=== PATIENT | male | born 1980 | race Caucasian/White ===

== ENCOUNTER 2024-11-20 14:50 | Outpatient (AMB) | payer OTHER, SELFPAY ==
--- NOTE | 2024-11-20 15:02 | A.OFFPC_ITS ---
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 Intake Note: New patient visit Road Equipment Operator Required: No Allergies No Known Allergies Allergy (Verified 11/20/24 15:19) Medication List - Last Reconciled 11/20/24 by Sarah Beth Nguyen PA-C No Known Home Meds Tobacco use date assessed: 11/20/24 Dental Screening Dental Screen Date: 11/20/24 Did you have a dental visit in the last 12 months?: No Did you have a dental problem in the last 6 months where you did not have access to dental care?: No Was dental information given to patient?: Patient has dentist HPI INDEPENDENT JEWELER // PE HPI Details Patient is a 44-year-old male who presents today to [facility] care. He is transferring from [facility]. He has a significant past medical history of seizures, fatty liver. He works in construction. CV: Blood pressure today in the office is 118/84. Neuro: Reports no seizures since 2016. He states there was no known cause. He has been off of medication in his last follow up was at that time. GI: His last appointment at [facility] he did have a liver ultrasound was consistent with fatty liver in 2019. Fam hx: father- has renal disease, dm, pacer; paternal grandfather- pacemaker, cad, cancer unknown etilogy; maternal grandfather- dementia and seizures PFSH Surgical History (Updated 11/20/24 @ 15:24 by Cici Don CMA) H/O vasectomy Family History (Updated 11/20/24 @ 15:08 by Cici Don CMA) Father Diabetes Family/Other Prostate cancer Other Seizure Social History Housing: House Alcohol intake: current Patient Tobacco Use Status: Former Tobacco user Cigarette Packs Per Day: 1 Years Smoked: 18 e-Cigarette/Vaping Use: Never Used Second Hand Smoke Exposure: No Substance Use Type: Former Substance User and Marijuana service: No Current occupational status: employed Current occupation: Construction Current occupational exposures/hazards: No Cognitive needs: No Hearing needs: No Vision needs: No Questionnaire PHQ-9 Over the last 2 weeks, how often have you been bothered by any of the following problems? 1. Little interest or pleasure in doing things: not at all 2. Feeling down, depressed, or hopeless: not at all 3. Trouble falling or staying asleep, or sleeping too much: not at all 4. Feeling tired or having little energy: not at all 5. Poor appetite or overeating: not at all 6. Feeling bad about yourself - or that you are a failure or have let yourself or your family down: several days 7. Trouble concentrating on things, such as reading the newspaper or watching television: not at all 8. Moving or speaking so slowly that other people could have noticed. Or the opposite - being so fidgety or restless that you have been moving around a lot more than usual: not at all 9. Thoughts that you would be better off or of hurting yourself in some way: not at all Total score: 1 Depression Screening Interpretation: Negative Depression Screening Done: Yes 69497 - PHQ-9 Billing: Yes Source: Developed by Drs. Kamari Koch, Emily Haq, Rhys Issa and colleagues, with an educational lane from [employer]. Thrive Questionnaire Date Thrive assessed: 11/20/24 I am a: Patient What is your living situation today?: I have a steady place to live Within the past 12 months, did the food you bought not last and you didn't have the money to get more?: Never true Within the past 12 months, did you worry whether your food would run out before you got money to buy more?: Never true Do you have trouble paying for medicines?: No Do you have trouble getting transportation to medical appointments?: No Do you have trouble paying your heating and electricity bill?: No Do you have trouble taking care of your child, family member or friend?: No Do you have trouble with day-to-day activities such as bathing, preparing meals, shopping, managing finances, etc.?: No Are you currently unemployed and looking for a job?: I choose not to answer this question Are you interested in more education?: No Please select the resources that you would like help with: None Currently or been in a relationship where the following occur: No concerns reported THRIVE Score: 0 Physical exam (Primary Care) Depression Screening Interpretation: Negative Thrive Assessment: Date of Thrive Assessment Date Thrive assessed 10/03/24 10/03/24 13:25 Currently or been in a relationship where the following occur: No concerns reported Const Orientation/consciousness: patient oriented x3 HENMT Ears: hearing grossly normal bilaterally and TM's normal bilaterally General nose exam: No nasal polyps present Face and sinus: Yes sinuses nontender Mouth: Normal oral and palatal mucosa present Eyes Pupils: Equal, round and reactive pupils present EOM: EOMs intact bilaterally Neck Neck: Yes full ROM and Yes no lymphadenopathy Thyroid: Thyroid normal Chest Chest palpation & inspection: normal inspection of the chest Resp Auscultation: clear to auscultation bilaterally Cardio Rate: regular rate Rhythm: regular rhythm Heart sounds: S1 normal heart sound present and S2 normal heart sound present Peripheral pulses: Peripheral pulses 2+ throughout GI Other: Soft, nontender Auscultation: normal bowel sounds Rectal Exam - Male: Yes deferred General: Yes no CVA tenderness Back/Spine/Pelvis Other: Nontender Back: no CVA tenderness Skin General skin exam: no rashes or lesions noted Neuro General: patient oriented x3, gait normal, CN's II-XI intact bilaterally and deep tendon reflexes 2+ bilaterally Cranial nerves: Yes Equal, round and reactive pupils present Motor exam (neuro): 5/5 motor strength present throughout Sensory Exam: double simultaneous stimulation for sensation normal Coordination: [id number] test normal and Romberg test negative Extrem General: Yes normal to inspection and Yes full ROM Psych Affect: normal affect Attitude: cooperative Thought process: Normal thought process present Thought content: Normal thought content present Insight: Good insight present (Psych) Judgement: Good judgement present (Psych) Coding Level of Care Code New Pt Prev Care 40-64y(86465) Diagnoses Routine general medical examination at a health care facility Z00.00 Fatty liver K76.0 History of seizures Z87.898 Additional Codes PHQ-9 - 67572 - PHQ-9 Billing: Yes ([id number]) Assessment & Plan Assessment & Plan (1) Routine general medical examination at a health care facility: Code(s): Z00.00 - Encounter for general adult medical examination without abnormal findings Plan: reviewed labs ordered referral to [facility] (2) Fatty liver: Code(s): K76.0 - Fatty (change of) liver, not elsewhere classified Category: Medical Plan: ultrasound ordered (3) History of seizures: Code(s): Z87.898 - Personal history of other specified conditions Category: Medical Plan: Has been seizure free for 9 years. Orders: Orders Complete Blood Count Auto Diff Today K76.0 - Fatty (change of) liver, not elsewhere classified, Z00.00 - Encounter for general adult medical examination without abnormal findings, Z87.898 - Personal history of other specified conditions Lipid Panel Today K76.0 - Fatty (change of) liver, not elsewhere classified, Z00.00 - Encounter for general adult medical examination without abnormal findings, Z87.898 - Personal history of other specified conditions UA CC w/rflx Micro + Cult Today K76.0 - Fatty (change of) liver, not elsewhere classified, Z00.00 - Encounter for general adult medical examination without abnormal findings, Z13.220 - Encounter for screening for lipoid disorders, Z87.898 - Personal history of other specified conditions TSH reflex Free T4 Today K76.0 - Fatty (change of) liver, not elsewhere classified, Z00.00 - Encounter for general adult medical examination without abnormal findings, Z87.898 - Personal history of other specified conditions Prostate Specific Antigen Scr Today Z01.89 - Encounter for other specified special examinations Comprehensive [place]. Panel Fast Today K76.0 - Fatty (change of) liver, not elsewhere classified, Z00.00 - Encounter for general adult medical examination without abnormal findings, Z87.898 - Personal history of other specified conditions US abdomen comp w elastography Today K76.0 - Fatty (change of) liver, not elsewhere classified Venous Lead Today Z77.011 - Contact with and (suspected) exposure to lead Referrals Dermatology Referral Z12.83 - Encounter for screening for malignant neoplasm of skin
[2024-11-20 15:09] VITALS: BP 118/74; PULSE 68; RESP 16; O2SAT 97; BMI 33.9
== END 2024-11-20 15:49 | disposition home or self-care (01) ==
PROVIDERS: PCP Physician Assistant; Visit Provider Physician Assistant
DX: Z00.00 Encounter for general adult medical examination without abnormal findings (principal); K76.0 Fatty (change of) liver, not elsewhere classified; Z87.898 Personal history of other specified conditions

== ENCOUNTER → 2024-11-20 14:50 | Outpatient (BNVA) | payer OTHER, SELFPAY | PROVIDERS: PCP Physician Assistant; Visit Provider Physician Assistant | DX: Z00.00 Encounter for general adult medical examination without abnormal findings (principal); K76.0 Fatty (change of) liver, not elsewhere classified; Z87.898 Personal history of other specified conditions | CPT/HCPCS: 96127; 99386 ==

== ENCOUNTER 2024-12-30 10:10 | Outpatient (REF) | payer OTHER, SELFPAY ==
--- NOTE | ~2024-12-30 | US_ITS ---
EXAMINATION: US ABDOMEN COMPLETE WITH LIVER ELASTOGRAPHY HISTORY: K76.0 - Fatty (change of) liver, not elsewhere classified TECHNIQUE: Real-time grayscale ultrasound imaging of the abdomen was performed and images were reviewed. COMPARISON: There are no prior studies for comparison. FINDINGS: Liver: The right lobe of the liver measures 13.0 cm in size. The left lobe of the liver measures 10.4 cm in size. The liver demonstrates increased echotexture, consistent with steatosis. There is focal fatty sparing adjacent to the gallbladder. No focal mass or intrahepatic biliary ductal dilatation is identified. There is normal hepatopedal flow in the portal vein. Ultrasound elastography of the liver was performed with 10 separate measurements of the liver parenchyma with the patient in the supine position. Measurements were obtained approximately 2 cm below Cammie's capsule and perpendicular to the capsule. Images are of satisfactory quality. The median shear wave velocity is 1.38 m/s. The interquartile range/median (IQR/median) is 0.07. Gallbladder and biliary tree: There are polyps in the gallbladder measuring up to 4 mm in size. The gallbladder is otherwise unremarkable, without evidence of calculi, wall thickening, or pericholecystic fluid. There is no sonographic Chacon sign. The common bile duct is normal in caliber measuring 2 mm. Kidneys: The right kidney measures 11.3 cm in length. The left kidney measures 11.0 cm in length. There is an 8 mm cyst at the lower pole of the right kidney. The kidneys are otherwise unremarkable, without evidence of solid masses, hydronephrosis, or calculi. Pancreas: The pancreatic head, neck, and body are unremarkable. The pancreatic tail is obscured by bowel gas. Spleen: The spleen is normal in size and contour, measuring 11.2 cm in length. Abdominal aorta and inferior vena cava: The visualized portions of the abdominal aorta and inferior vena cava are normal in caliber. There is no free fluid in the abdomen. US/US abdomen comp w elastography IMPRESSION: Hepatomegaly and hepatic steatosis. Gallbladder polyps. The median shear wave velocity in the liver is 1.38 m/s, corresponding to a median liver stiffness of 5.67 kPa. The IQR/median value is 0.07. This is indicative of a quality data set. Findings are indicative of a low elastography value which rules out advanced chronic liver disease in asymptomatic patients. REFERENCE: Society of Radiologists in Ultrasound Liver Stiffness Thresholds (2020): LIVER STIFFNESS THRESHOLDS: *Shear wave velocity less than 1.3 m/s (Liver Stiffness equal or less than 5 kPa): High probability of being normal. *Shear wave velocity less than 1.7 m/s (Liver Stiffness less than 9 kPa): In the absence of other known clinical signs, rules out compensated advanced chronic liver disease. *Shear wave velocity between 1.7-2.1 m/s (Liver Stiffness 9-13 kPa): Suggestive of compensated advanced chronic liver disease but need further test for confirmation. *Shear wave velocity between 2.1-2.4 m/s (Liver Stiffness 13-17 kPa): Rules in compensated advanced chronic liver disease. *Shear wave velocity greater than 2.4 m/s (Liver Stiffness over 17 kPa): Suggestive of clinically significant portal hypertension. QUALITY OF DATA SET: *IQR/Median value equal or less than 0.15 implies a quality data set. *IQR/Median value over 0.15 implies a poor quality data set. SIGNIFICANT CHANGE FROM PRIOR EXAM: Significant change if liver stiffness measurement is 10% or greater from prior exam. OTHER CONSIDERATIONS: The stage of liver fibrosis may be overestimated in the setting of acute hepatitis, liver inflammation, elevated liver function tests, hepatic vascular congestion, obstructive cholestasis, non-fasting state, and infiltrative diseases such as amyloidosis and lymphoma. In some patients with NAFLD, the liver stiffness thresholds for compensated advanced chronic liver disease may be lower. In causes other than viral hepatitis and NAFLD, liver stiffness thresholds are not well established. Electronically signed by: Kamari Jang MD 12/30/2024 11:25 AM EDT
== END 2024-12-30 10:11 | disposition home or self-care (01) ==
LOC: HO.US 10:10
PROVIDERS: PCP Physician Assistant; Visit Provider Physician Assistant
DX: K76.0 Fatty (change of) liver, not elsewhere classified (principal)
CPT/HCPCS: 76700; 76981

== ENCOUNTER → 2024-12-30 10:11 | Outpatient (BNV) | payer OTHER, SELFPAY | PROVIDERS: PCP Physician Assistant; Visit Provider Radiology Diagnostic Radiology | DX: K76.0 Fatty (change of) liver, not elsewhere classified (principal) | CPT/HCPCS: 76700; 76981 ==

== ENCOUNTER 2025-01-27 14:46 | Outpatient (AMB) | payer OTHER, SELFPAY ==
--- NOTE | 2025-01-27 14:48 | MHC.OFFVIS ---
Vital Signs 01/27/25 14:55 Height 6 ft Weight 239 lb BMI 32.4 BP 120/73 Blood Pressure Location Lt brachial Position Sitting Pulse 75 Intake Visit Reasons: Gallbladder problems Intake Note: Patient is seen in office for gallbladder problems. Pt c/o: incidental finding had imaging for fatty liver and was told about stones in the gallbladder, has no symptoms, denies n/v/d/c Imagin12/30/24 Quantitative Analyst Developer Required: No Accompanied by: se Allergies No Known Allergies Allergy (Verified 11/20/24 15:19) Medication List - Last Reconciled 01/27/25 by Bairon Vilchis MD atorvastatin 10 mg PO QPM HPI Comments Details: 44-year-old male patient presenting for evaluation of a recent gallbladder ultrasound. He has a history of fatty liver and underwent a screening ultrasound for follow-up of the fatty liver. Incidentally noted was a 4 mm gallbladder polyp. There was no evidence of wall thickening, pericholecystic fluid, ductal enlargement, or sonographic Chacon sign. He denies any history of abdominal pain in the right upper quadrant or epigastrium. He was recently noted to have a markedly elevated triglyceride level and is working on diet and exercise to lower these levels. He is otherwise healthy and is employed as a [employer]. He reports switching from beer to nonalcoholic beer. He does have a history of tobacco use. [facility] Surgical History H/O vasectomy Family History Father Diabetes Family/Other Prostate cancer Other Seizure Social History Housing: House Alcohol intake: current Patient Tobacco Use Status: Former Tobacco user Cigarette Packs Per Day: 1 Years Smoked: 18 e-Cigarette/Vaping Use: Never Used Second Hand Smoke Exposure: No Substance Use Type: Former Substance User and Marijuana service: No Current occupational status: employed Current occupation: Construction Current occupational exposures/hazards: No Cognitive needs: No Hearing needs: No Vision needs: No Review of Systems Const All systems reviewed & are unremarkable except as noted in HPI and below Physical Exam Vital Signs: Last Vital Signs Pulse 75 01/27/25 14:55 BP 120/73 01/27/25 14:55 BMI result Body Mass Index 32.4 Const General: cooperative and no acute distress Nutritional Appearance: well nourished Orientation/consciousness: patient oriented x3 Limitations: no limitations HEENT Head: Yes normocephalic and Yes atraumatic Ears: hearing grossly normal bilaterally Eyes Sclerae: sclerae normal Resp Effort & Inspection: normal respiratory effort, no audible wheezes, no cough and no respiratory distress Cardio Jugular venous distension: no JVD GI Other: Negative Chacon sign Inspection: Yes normal to inspection Palpation (GI): Soft to palpation, nontender, no guarding, not rigid and No hepatosplenomegaly present Skin Other: Warm, dry, no rash Neuro General: patient oriented x3 Extrem General: Yes no clubbing, cyanosis or edema Results Reviewed Results Reviewed: Ultrasound of the abdomen reviewed. Single polyp noted measuring 4 mm in diameter. No other cholelithiasis or wall thickening. Assessment & Plan Assessment & Plan (1) Gallbladder polyp: Code(s): K82.4 - Cholesterolosis of gallbladder Category: Medical Plan 44-year-old male patient presenting with an incidentally noted gallbladder polyp measuring 4 mm on a recent ultrasound taken for evaluation of fatty liver. Patient denies any gallbladder type symptoms and on examination has no evidence of right upper quadrant abdominal tenderness or Chacon sign. As long as the polyp is less than 10 mm in diameter and asymptomatic, no surgical intervention is recommended. Would recommend a repeat ultrasound in 1 year to evaluate for enlargement of the polyp. He expressed understanding and agrees with the plan. Orders: Orders US abdomen limited 1 Year K82.4 - Cholesterolosis of gallbladder Coding Level of Care Code New Pt Level 4 (68039) Diagnoses Gallbladder polyp K82.4
[2025-01-27 14:55] VITALS: BP 120/73; PULSE 75; BMI 32.4
== END 2025-01-27 15:22 | disposition home or self-care (01) ==
LOC: HO.HGS 14:47
PROVIDERS: PCP Physician Assistant; Visit Provider Surgery
DX: K82.4 Cholesterolosis of gallbladder (principal)
CPT/HCPCS: 99204

== ENCOUNTER → 2025-01-27 14:46 | Outpatient (BNVA) | payer OTHER, SELFPAY | PROVIDERS: PCP Physician Assistant; Visit Provider Surgery | DX: K82.4 Cholesterolosis of gallbladder (principal) | CPT/HCPCS: 99202 ==